=== PATIENT | male | born 1980 ===

== ENCOUNTER 2018-06-06 11:12 | Emergency (ER) | payer MEDICAID ==
[2018-06-06 11:24] VITALS: BMI 29.0
[2018-06-06] MEDS ORDERED: Sodium Chloride 0.9% 1,000 ML IV ONE ×2 (11:24→11:25)
--- NOTE | 2018-06-06 11:30 | C.PDOC ---
History Of Present Illness 38-year-old male, presents to the emergency department with complaints of shortness of breath. Patient states he was experiencing some dysuria, and thought he had a UTI, he went to see Dr Whyte, and while there he developed shortness of breath and chills, resulting in him being sent to ED for further evaluation. Patient states he was given a shot of something and breathing treatment at the office. No nausea/vomiting, chest pain. Time Seen by Provider: 06/06/18 11:18 Chief Complaint (Nursing): Shortness Of Breath History Per: Patient History/Exam Limitations: no limitations Onset/Duration Of Symptoms: Days Past Medical History Reviewed: Historical Data, Nursing Documentation, Vital Signs Family History: States: No Known Family Hx Review Of Systems Constitutional: Negative for: Fever, Chills Cardiovascular: Negative for: Chest Pain Respiratory: Positive for: Shortness of Breath, Wheezing Gastrointestinal: Negative for: Vomiting Genitourinary: Positive for: Dysuria Physical Exam - Physical Exam Appears: Non-toxic, No Acute Distress, Other (Morbidly obese) Skin: Normal Color, Warm, Dry, No Rash Head: Atraumatic, Normacephalic Eye(s): bilateral: Normal Inspection Nose: Normal Oral Mucosa: Moist Lips: Normal Appearing Neck: Normal ROM Chest: Symmetrical Cardiovascular: Rhythm Regular, No Murmur Respiratory: No Accessory Muscle Use, Wheezing Gastrointestinal/Abdominal: Soft, No Tenderness, No Guarding, No Rebound Extremity: Normal ROM, No Deformity Neurological/Psych: Oriented x3, Normal Speech ED Course And Treatment - Laboratory Results Result Diagrams: 06/06/18 11:52 06/06/18 11:52 Lab Interpretation: Normal ECG: Interpreted By Wy ECG Rhythm: Sinus Tachycardia ECG Interpretation: Normal Rate From EC O2 Sat by Pulse Oximetry: 98 Pulse Ox Interpretation: Normal - Radiology CXR: Interpreted by Wy CXR Interpretation: Yes: No Acute Disease - CT Scan/US No standard instances Other Rad Studies (CT/US): Read By Radiologist, Radiology Report Reviewed CT/US Interpretation: FINDINGS: LOWER THORAX: Lung bases clear. No infiltrate effusion or basilar pneumothorax. Heart size normal. No significant pericardial effusion. Tiny hiatal hernia. LIVER: Liver is markedly enlarged measuring nearly 24 cm in CC dimension.. Moderate fatty hepatic infiltration. No obvious hepatic mass collection or calcification. GALLBLADDER AND BILE DUCTS: Gallbladder physiologically distended. No evidence of intraluminal gallbladder calculi. PANCREAS: Unremarkable. No mass. No ductal dilatation. SPLEEN: Spleen is enlarged measuring over 17 cm AP x 13cm cc. ADRENALS: No adrenal lesions are identified. KIDNEYS AND URETERS: If there is asymmetry of the kidneys right-sided which is smaller than the left side. No evidence of nephrolithiasis or hydronephrosis. No evidence of significant calcified atherosclerotic plaque along the renal arteries. BLADDER: Urinary bladder is incompletely distended which in part accounts for thick-walled appearance however muscular hypertrophy presumably contributes. Correlation with urinalysis recommended. REPRODUCTIVE: Unremarkable. APPENDIX: Normal appendix. BOWEL: Evaluation of the bowel is somewhat limited due to the lack of oral contrast. Stomach is incompletely distended. Visualized loops of small bowel exhibit normal contour and caliber. No evidence of acute mechanical small bowel obstruction. Stool and air seen throughout the large bowel. No definitive abnormal. PERITONEUM: Unremarkable. No fluid collection. No free air. Small fat containing umbilical hernia. LYMPH NODES: Few small nonspecific retroperitoneal lymph nodes are present.. Additionally, there are a few small on nonspecific mesenteric lymph nodes. VASCULATURE: No evidence of abdominal aortic or iliac artery aneurysms. BONES: No fracture or destructive lesion. OTHER FINDINGS: None. IMPRESSION: Marked hepatomegaly with moderate fatty hepatic infiltration. Splenomegaly. Atrophic right kidney. Small nonspecific retroperitoneal and scattered mesenteric lymph nodes. Rule out mesenteric adenitis. Progress Note: Treated with IVF NSS x 2 liters and rocephin 1 gm IV and tylenol. On re-evaluation afibrile abdomen soft in no distress. Abdomen soft non-tender Reassessment Condition: Improved Disposition Counseled Patient/Family Regarding: Studies Performed, Diagnosis, Need For Followup, Rx Given - Disposition Referrals: Roberto Terry Jr., MD [Staff Provider] - Shimon Whyte, DUNIA, EMAIL MANAGER [Advanced Practice Nurse] - Disposition: HOME/ ROUTINE Disposition Time: 15:00 Condition: STABLE Additional Instructions: Return to ED if any increase symptoms Follow up with urology for further evaluation Prescriptions: Cephalexin [cephalexin] 500 mg PO Q6 #28 cap Instructions: Urinary Tract Infections in Adults, Kidney Infection (DC) Forms: [employer] (Macedonian) - POA Present On Arrival: None - Clinical Impression Clinical Impression: Pyelonephritis - Scribe Statement The provider has reviewed the documentation as recorded by the Scribe (Elizabet Peña) All medical record entries made by the Scribe were at my direction and personally dictated by me. I have reviewed the chart and agree that the record accurately reflects my personal performance of the history, physical exam, medical decision making, and the department course for this patient. I have also personally directed, reviewed, and agree with the discharge instructions and disposition.
[2018-06-06] MEDS ORDERED: Sodium Chloride 0.9% 2,000 ML ONE (11:31)
[2018-06-06 12:00] LABS: BASO % 0.5 % (0.0-2.0); EOS # 0.1 K/uL (0.0-0.7); EOS % 1.8 % (0.0-4.0); HEMOGLOBIN 15.1 g/dL (12.0-18.0); LYMPH # 0.8 K/uL (1.0-4.3); LYMPH % 11.6 % (20.0-40.0); MEAN CELL VOLUME 92.7 fL (80.0-94.0); MEAN CORPUSCULAR HEMOGLOBIN 32.8 pg (27.0-31.0); MEAN CORPUSCULAR HGB CONC 35.4 g/dL (33.0-37.0); MEAN PLATELET VOLUME 7.3 fL (7.2-11.7); MONO # 0.2 K/uL (0.0-0.8); MONO % 3.4 % (0.0-10.0); NEUT # 5.5 K/uL (1.8-7.0); NEUT % 82.7 % (50.0-75.0); NRBC % 0.1 % (0.0-2.0); RBC 4.6 Mil/uL (4.40-5.90); RED CELL DISTRIBUTION WIDTH 12.6 % (11.5-14.5); WHITE BLOOD COUNT 6.6 K/uL (4.8-10.8)
[2018-06-06 12:14] LABS: SQUAMOUS EPITHIAL 2 /hpf (0-5); URINE BILIRUBIN NEGATIVE (NEGATIVE); URINE BLOOD 3+ (NEGATIVE); URINE CLARITY Hazy (Clear); URINE COLOR Amber (YELLOW); URINE GLUCOSE (UA) NORMAL (Normal); URINE LEUKOCYTE ESTERASE 3+ Leu/uL (Negative); URINE PROTEIN 3+ mg/dL (NEGATIVE); WBC CLUMPS MANY /hpf
--- NOTE | 2018-06-06 12:16 | RAD ---
HISTORY: Cough r/o CHF COMPARISON: None available. TECHNIQUE: Chest PA and lateral FINDINGS: Examination limited by habitus. LUNGS: Mild pulmonary venous congestion. No focal consolidation. Please note that chest x-ray has limited sensitivity for the detection of pulmonary masses. PLEURA: No significant pleural effusion identified. No definite pneumothorax . CARDIOVASCULAR: Heart size appears within normal limits. OSSEOUS STRUCTURES: Degenerative changes of the spine. VISUALIZED UPPER ABDOMEN: Unremarkable. OTHER FINDINGS: None. IMPRESSION: Mild pulmonary venous congestion.
[2018-06-06 12:21] LABS: ALB/GLOB RATIO 1.2 (1.0-2.1); ALT/SGPT 71 U/L (21-72); AST/SGOT 50 U/L (17-59); BLOOD UREA NITROGEN 14 mg/dL (9-20); CALCIUM 8.6 mg/dl (8.6-10.4); GFR NON-AFRICAN AMERICAN > 60; LIPASE 51 U/L (23-300)
[2018-06-06] MEDS ORDERED: cefTRIAXone IV 1 gm in Dextros 50 ML IV ONE (12:21)
[2018-06-06] MEDS ORDERED: cefTRIAXone 1 gm 1 GM/100 ML BAG IVPB ONE (12:52)
[2018-06-06 13:22] VITALS: BP 118/43; PULSE 94; RESP 18
--- NOTE | 2018-06-06 13:49 | CT ---
Date of service: 06/06/2018 PROCEDURE: CT Abdomen and Pelvis with Oral contrast. HISTORY: Pain COMPARISON: None. TECHNIQUE: Contiguous axial images of the abdomen and pelvis performed without oral or intravenous contrast material. Additional 2D sagittal and coronal reformats generated. Radiation dose: Total exam DLP = 1275.28 MGy-cm. This CT exam was performed using one or more of the following dose reduction techniques: Automated exposure control, adjustment of the mA and/or kV according to patient size, and/or use of iterative reconstruction technique. FINDINGS: LOWER THORAX: Lung bases clear. No infiltrate effusion or basilar pneumothorax. Heart size normal. No significant pericardial effusion. Tiny hiatal hernia. LIVER: Liver is markedly enlarged measuring nearly 24 cm in CC dimension.. Moderate fatty hepatic infiltration. No obvious hepatic mass collection or calcification. GALLBLADDER AND BILE DUCTS: Gallbladder physiologically distended. No evidence of intraluminal gallbladder calculi. PANCREAS: Unremarkable. No mass. No ductal dilatation. SPLEEN: Spleen is enlarged measuring over 17 cm AP x 13cm cc ADRENALS: No adrenal lesions are identified. KIDNEYS AND URETERS: If there is asymmetry of the kidneys right-sided which is smaller than the left side. No evidence of nephrolithiasis or hydronephrosis. No evidence of significant calcified atherosclerotic plaque along the renal arteries. BLADDER: Urinary bladder is incompletely distended which in part accounts for thick-walled appearance however muscular hypertrophy presumably contributes. Correlation with urinalysis recommended. REPRODUCTIVE: Unremarkable. APPENDIX: Normal appendix BOWEL: Evaluation of the bowel is somewhat limited due to the lack of oral contrast. Stomach is incompletely distended. Visualized loops of small bowel exhibit normal contour and caliber. No evidence of acute mechanical small bowel obstruction. Stool and air seen throughout the large bowel. No definitive abnormal PERITONEUM: Unremarkable. No fluid collection. No free air. Small fat containing umbilical hernia. LYMPH NODES: Few small nonspecific retroperitoneal lymph nodes are present.. Additionally, there are a few small on nonspecific mesenteric lymph nodes. VASCULATURE: No evidence of abdominal aortic or iliac artery aneurysms. BONES: No fracture or destructive lesion. OTHER FINDINGS: None. IMPRESSION: Marked hepatomegaly with moderate fatty hepatic infiltration. Splenomegaly. Atrophic right kidney Small nonspecific retroperitoneal and scattered mesenteric lymph nodes. Rule out mesenteric adenitis.
[2018-06-06 14:45] VITALS: TEMP 99.6
[2018-06-06 15:06] VITALS: O2SAT 98
--- NOTE | 2018-06-07 11:23 | CARD ---
APPROVED REPORT Date of service: 06/06/2018 EKG Measurement Heart [id number] <Conclusion> Sinus tachycardia Otherwise normal ECG
== END 2018-06-06 15:30 | disposition home or self-care (01) ==
LOC: MERGE 11:12 → C.ER 11:12
DX: N12 Tubulo-interstitial nephritis, not specified as acute or chronic (principal)
CPT/HCPCS: 71046; 74176; 80053; 81001; 83605; 83690; 85025; 87086; 87491; 87591; 93005; 96361; 96374; 99284; J0696; J7030